=== PATIENT | female | born 1975 | race African-American/Black ===

== ENCOUNTER 2019-05-26 12:22 | Emergency (ER) | payer SELFPAY ==
[~2019-05-26] VITALS: Ht 157.5 cm; Wt 98.0 kg
--- NOTE | 2019-05-26 13:57 | PHYS DOC ---
Past Medical History Past Medical History: CVA, Hypertension, Seizure, Other Additional Past Medical Histor: NEUROPATHY Past Surgical History: Other Additional Past Surgical Histo: BRAIN ANEURSYM,TRACH Alcohol Use: None Drug Use: None Adult General Chief Complaint Chief Complaint: FACE PROBLEM HPI HPI Patient is a 44 year old Female who presents with states last night she began having upper lip swelling and pain and itchiness and right facial swelling. She states she is also having some slight throat tightness. She states now that her bottom lip is starting to itch. She denies any medications, lisinopril, shortness of breath, chest pain, nausea, vomiting, trouble swallowing, new medication, new lotions, new soaps, new environments, new foods. She states it also hurts a rates her pain a 5 out of 10. Review of Systems Review of Systems HENT: Denies nasal congestion or sore throat. Facial swelling, Throat tightness [] All other systems were reviewed and found to be within normal limits, except as documented in this note. Current Medications Current Medications Current Medications Medications (Trade) Dose Ordered Sig/Anatoliy Start Time Stop Time Status Last Admin Dose Admin Diphenhydramine HCl (Benadryl) 25 mg 1X ONCE 05/26/19 14:00 05/26/19 14:01 DC 05/26/19 14:21 25 MG Famotidine (Pepcid Vial) 20 mg 1X ONCE 05/26/19 14:00 05/26/19 14:01 DC 05/26/19 14:21 20 MG Iohexol (Omnipaque 300 Mg/ml) 70 ml 1X ONCE 05/26/19 16:30 05/26/19 16:33 DC Prednisone (Prednisone) 50 mg 1X ONCE 05/26/19 14:00 05/26/19 14:01 DC 05/26/19 14:21 50 MG Allergies Allergies Allergies Coded Allergies Type Severity Reaction Last Updated Verified No Known Drug Allergies 05/26/19 No Physical Exam Physical Exam Constitutional: Well developed, well nourished, no acute distress, non-toxic appearance. [] HENT: Normocephalic, atraumatic, bilateral external ears normal, oropharynx mois t, no oral exudates, nose normal. 2+ right facial swelling and upper lip swelling.[] Eyes: PERRLA, EOMI, conjunctiva normal, no discharge. [] Neck: Normal range of motion, no tenderness, supple, no stridor. [] Cardiovascular:Heart rate regular rhythm, no murmur [] Lungs & Thorax: Bilateral breath sounds clear to auscultation [] Abdomen: Bowel sounds normal, soft, no tenderness, no masses, no pulsatile masses. [] Skin: Warm, dry, no erythema, no rash. [] Back: No tenderness, no CVA tenderness. [] Extremities: No tenderness, no cyanosis, no clubbing, ROM intact, no edema. [] Neurologic: Alert and oriented X 3, normal motor function, normal sensory function, no focal deficits noted. [] Psychologic: Affect normal, judgement normal, mood normal. [] Current Patient Data Vital Signs Vital Signs Date Time Temp Pulse Resp B/P (MAP) Pulse Ox O2 Delivery O2 Flow Rate FiO2 05/26/19 16:26 66 19 134/63 (86) 96 Room Air 05/26/19 13:06 98.0 98.0 Lab Values Laboratory Tests Test 05/26/19 16:00 05/26/19 16:10 White Blood Count 4.9 x10^3/uL (4.0-11.0) Red Blood Count 4.74 x10^6/uL (3.50-5.40) Hemoglobin 11.8 g/dL (12.0-15.5) L Hematocrit 36.4 % (36.0-47.0) Mean Corpuscular Volume 77 fL (79-100) L Mean Corpuscular Hemoglobin 25 pg (25-35) Mean Corpuscular Hemoglobin Concent 33 g/dL (31-37) Red Cell Distribution Width 16.6 % (11.5-14.5) H Platelet Count 120 x10^3/uL (140-400) L Neutrophils (%) (Auto) 79 % (31-73) H Lymphocytes (%) (Auto) 12 % (24-48) L Monocytes (%) (Auto) 5 % (0-9) Eosinophils (%) (Auto) 3 % (0-3) Basophils (%) (Auto) 0 % (0-3) Neutrophils # (Auto) 3.9 x10^3/uL (1.8-7.7) Lymphocytes # (Auto) 0.6 x10^3/uL (1.0-4.8) L Monocytes # (Auto) 0.3 x10^3/uL (0.0-1.1) Eosinophils # (Auto) 0.1 x10^3/uL (0.0-0.7) Basophils # (Auto) 0.0 x10^3/uL (0.0-0.2) Sodium Level 139 mmol/L (136-145) Potassium Level 3.8 mmol/L (3.5-5.1) Chloride Level 104 mmol/L (98-107) Carbon Dioxide Level 27 mmol/L (21-32) Anion Gap 8 (6-14) Blood Urea Nitrogen 12 mg/dL (7-20) Creatinine 1.1 mg/dL (0.6-1.0) H Estimated GFR (Cockcroft-Gault) 65.6 BUN/Creatinine Ratio 11 (6-20) Glucose Level 91 mg/dL (70-99) Calcium Level 9.5 mg/dL (8.5-10.1) Total Bilirubin 0.3 mg/dL (0.2-1.0) Aspartate Amino Transferase (AST) 26 U/L (15-37) Alanine Aminotransferase (ALT) 19 U/L (14-59) Alkaline Phosphatase 105 U/L (46-116) Total Protein 9.1 g/dL (6.4-8.2) H Albumin 3.4 g/dL (3.4-5.0) Albumin/Globulin Ratio 0.6 (1.0-1.7) L POC Urine HCG, Qualitative Hcg negative (Negative) Laboratory Tests 05/26/19 16:00 Laboratory Tests 05/26/19 16:00 EKG EKG [] Radiology/Procedures Radiology/Procedures [] Impressions: [facility] [address] [place], [place] [id number] IMAGING REPORT Signed PATIENT: VETO FARAH ACCOUNT: [id number] : 1975 LOCATION: ER AGE: 44 SEX: F EXAM STATUS: REG ER ORD. PHYSICIAN: FLAVIO MARTIN APRN REASON: right sided facial swelling PROCEDURE: CT MAXILLOFACIAL W/CONTRAST CT maxillofacial with contrast. HISTORY: Right-sided facial swelling CT maxillofacial was done using 70 mL Omnipaque 300 contrast. Sagittal and coronal images were reconstructed. Mandible is intact is minimal mucosal thickening in the left maxillary antrum. Remaining sinuses are clear. There is mild periodontal disease at the incisors of the maxilla and left maxillary canine. There is no fracture or bony destructive process otherwise identified. A facial abscess is not identified. The ostiomeatal complex in the sinuses is clear. IMPRESSION: 1. Dental disease with root abscess is in incisors and left canine in the maxilla. 2. Minimal mucosal thickening in the left maxillary antrum. 3. No other abscess noted. 4. No facial fracture noted. Electronically signed by: Harrison Moffett MD (05/26/2019 5:11 PM) [facility] DICTATED and SIGNED BY: HARRISON MOFFETT MD DATE: 05/26/191710 Course & Med Decision Making Course & Med Decision Making She does have many dental caries and missing teeth but denies any dental pain. Denies fever. Alert and oriented. Ambulatory and steady gait. Skin pink warm and dry. Facial swelling is 2+. No tongue swelling, uvula or throat swelling is seen. There are no hives on her body or in her mouth. Lungs are clear to auscultation all lobes. Skin is pink warm and dry. Vital signs within normal limits. Patient states that after medications given that she feels no change except for the bottom lip itching has lessened. I have spoken to Dr Walker and asking if this is either a dental abscess vs allergic reaction. I explained all symptoms and exam findings. She states it is a allergic reaction and to send her home with allergic reaction medications. She states to let the patient know that facial swelling takes time to go away. [] Dragon Disclaimer Dragon Disclaimer This electronic medical record was generated, in whole or in part, using a voice recognition dictation system. Departure Departure Impression: Primary Impression: Dental abscess Disposition: HOME, SELF-CARE Condition: STABLE Referrals: UNKNOWN PCP NAME (PCP) Patient Instructions: Dental Abscess Additional Instructions: Follow up wiht a dentist as soon as possible. Take antibiotics until they are all finished ad take with food. Start the Medrol dose pack tomorrow. Scripts Penicillin V Potassium (PENICILLIN V POTASSIUM) 500 Mg Tablet 1 TAB PO QID, #40 TAB Prov: FLAVIO MARTIN [employer] PROFESSOR 05/26/19 Methylprednisolone (MEDROL) 4 Mg Tab.ds.pk 1 PKG PO UD, #1 PKG Prov: FLAVIO MARTIN APRN 05/26/19 FLAVIO MARTIN APRN May 26, 2019 13:57
[2019-05-26] MEDS: FAMOTIDINE 20 MG/2 ML VIAL IVP ONE (14:21)
[2019-05-26] MEDS: predniSONE 10 MG TABLET PO ONE (14:21)
[2019-05-26] MEDS: diphenhydrAMINE 50 MG/ML VIAL IVP ONE (14:21)
[2019-05-26 16:05] LABS: BASO % 0 % (0-3); EOS # 0.1 x10^3/uL (0.0-0.7); EOS % 3 % (0-3); HEMATOCRIT 36.4 % (36.0-47.0); HEMOGLOBIN 11.8 g/dL (12.0-15.5); LYMPH # 0.6 x10^3/uL (1.0-4.8); LYMPH % 12 % (24-48); MEAN CORPUSCULAR HEMOGLOBIN 25 pg (25-35); MEAN CORPUSCULAR HGB CONC 33 g/dL (31-37); MEAN CORPUSCULAR VOLUME 77 fL (79-100); MONO # 0.3 x10^3/uL (0.0-1.1); MONO % 5 % (0-9); NEUT # 3.9 x10^3/uL (1.8-7.7); NEUT % 79 % (31-73); PLATELET COUNT 120 x10^3/uL (140-400); RED BLOOD COUNT 4.74 x10^6/uL (3.50-5.40); RED CELL DISTRIBUTION WIDTH 16.6 % (11.5-14.5); WHITE BLOOD COUNT 4.9 x10^3/uL (4.0-11.0)
[2019-05-26 16:21] LABS: CALCIUM 9.5 mg/dL (8.5-10.1); CREATININE 1.1 mg/dL (0.6-1.0); GFR 65.6; POTASSIUM 3.8 mmol/L (3.5-5.1)
[2019-05-26 16:26] LABS: ALBUMIN 3.4 g/dL (3.4-5.0); ALBUMIN/GLOBULIN RATIO 0.6 (1.0-1.7); TOTAL BILIRUBIN 0.3 mg/dL (0.2-1.0); TOTAL PROTEIN 9.1 g/dL (6.4-8.2)
[2019-05-26] MEDS: IOHEXOL 300 MG/ML 100ML VIAL. IV ONE (16:30)
--- NOTE | 2019-05-26 17:13 | RAD ---
CT maxillofacial with contrast. HISTORY: Right-sided facial swelling CT maxillofacial was done using 70 mL Omnipaque 300 contrast. Sagittal and coronal images were reconstructed. Mandible is intact is minimal mucosal thickening in the left maxillary antrum. Remaining sinuses are clear. There is mild periodontal disease at the incisors of the maxilla and left maxillary canine. There is no fracture or bony destructive process otherwise identified. A facial abscess is not identified. The ostiomeatal complex in the sinuses is clear. IMPRESSION: 1. Dental disease with root abscess is in incisors and left canine in the maxilla. 2. Minimal mucosal thickening in the left maxillary antrum. 3. No other abscess noted. 4. No facial fracture noted. Electronically signed by: Harrison Moffett MD (05/26/2019 5:11 PM) [facility]
[2019-05-26] MEDS ORDERED: METH4TAB2 PO (17:22)
[2019-05-26] MEDS ORDERED: PENI500T PO (17:22)
[2019-05-26 17:59] VITALS: BP 130/67
== END 2019-05-26 17:59 | disposition home or self-care (01) ==
LOC: ER 12:22
DX: K04.7 Periapical abscess without sinus (principal); R60.9 Edema, unspecified; L29.9 Pruritus, unspecified; R07.0 Pain in throat; I10 Essential (primary) hypertension; G62.9 Polyneuropathy, unspecified; Z98.890 Other specified postprocedural states; Z86.73 Personal history of transient ischemic attack (TIA), and cerebral infarction without residual deficits; Z79.899 Other long term (current) drug therapy
CPT/HCPCS: 36415; 70487; 80053; 81025; 85025; 96374; 96375; 99285; J1200; J3490; J7512; Q9967